=== PATIENT | female | born 1995 | race Caucasian/White ===

== ENCOUNTER 2018-09-18 20:27 | Emergency (ER) | payer BC, OTHER ==
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
[2018-09-19] MEDS ORDERED: Levonorgestrel 1.5 MG TAB PO ONE (02:09)
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
[2018-09-19] MEDS ORDERED: cefTRIAXone VIAL(*) 250 MG VIAL IM ONE (10:21)
[2018-09-19] MEDS ORDERED: Azithromycin TAB* 250 MG PO ONE (10:21)
[2018-09-19] MEDS ORDERED: Raltegravir* 400 MG TAB PO ONE (11:30)
[2018-09-19] MEDS ORDERED: Tenofovir/Emtricitab 200/300 * TAB PO ONE (11:31)
[2018-09-19] MEDS ORDERED: Lidocaine 1%* 5 ML VIAL ONE (11:40)
[2018-09-19 13:08] VITALS: BP 143/89
[2018-09-19] MEDS ORDERED: Raltegravir* 400 MG TAB PO SCH (21:00)
== END 2018-09-19 13:07 | disposition home or self-care (01) ==
LOC: ED 20:27
DX: T74.21XA Adult sexual abuse, confirmed, initial encounter (principal); Y07.9 Unspecified perpetrator of maltreatment and neglect
CPT/HCPCS: 96372; 99282; A9270-GY; J0696